=== PATIENT | female | born 1975 | race Caucasian/White ===

== ENCOUNTER 2017-11-19 17:40 | Emergency (ER) | payer OTHER ==
[2017-11-19] MEDS: predniSONE 20 MG TAB PO (22:34)
[2017-11-19] MEDS: HYDROmorphONE 1 MG/ML SYG IM (22:35)
== END 2017-11-19 23:19 | disposition home or self-care (01) ==
LOC: FTE 17:40
DX: M54.41 Lumbago with sciatica, right side (principal); I10 Essential (primary) hypertension; E11.9 Type 2 diabetes mellitus without complications; E66.9 Obesity, unspecified
CPT/HCPCS: 96372; 99284-25; J1170

== ENCOUNTER 2017-12-11 19:00 | Emergency (ER) | payer OTHER ==
[2017-12-11] MEDS: DIPHTH/TET/ACEL PERTUSS (ADULT) 0.5 ML VIAL IM* (21:12)
[2017-12-11] MEDS: LIDOCAINE 1% (MDV) 20 ML INJ SC (21:12)
== END 2017-12-11 23:46 | disposition home or self-care (01) ==
LOC: FTE 19:00
DX: S51.811A Laceration without foreign body of right forearm, initial encounter (principal); I10 Essential (primary) hypertension; E11.9 Type 2 diabetes mellitus without complications; W26.8XXA Contact with other sharp object(s), not elsewhere classified, initial encounter; Y92.9 Unspecified place or not applicable
CPT/HCPCS: 12001; 73090-RT; 90471; 90715; 99283-25